=== PATIENT | female | born 1960 | race Asian ===

== ENCOUNTER 2016-06-10 18:40 | Inpatient (IN) | payer OTHER ==
[~2016-06-10] VITALS: Ht 152.4 cm; Wt 66.7 kg
[2016-06-10 18:54] VITALS: Ht 152.4 cm; Wt 66.7 kg
[2016-06-10] MEDS ORDERED: ACETAMINOPHEN 325 MG TAB PO STA (22:33)
[2016-06-10] MEDS ORDERED: SODIUM CHLORIDE 0.9% 1L BAG IV* STA (22:33)
--- NOTE | 2016-06-10 22:33 | ERA ---
ER Documentation Chief Complaint Date/Time DATE: 06/10/16 TIME: 22:32 Chief Complaint Abdominal pain HPI The patient is a 55-year-old female, presenting to the ER because of acute on chronic diffuse abdominal pain, more painful at the right upper quadrant, 8/10, no aggravating or relieving factor. She also complains of intermittent cough for the last 2 weeks. She denies fever, chills, neck pain, chest pain, dyspnea , vomiting, dysuria, diarrhea. She does not smoke does not drink Past medical history: Hepatitis B, asthma, hypertension, diabetes mellitus Past surgical history: Multiple ERCP, biliary tract surgery, cholecystectomy ROS All systems reviewed and are negative except as per history of present illness. Medications Home Meds Reported Medications Calcium Carbonate-Vitamin D3 (Calcium 600 + Vit D3) 1 Each Tablet, 1 TAB PO DAILY, TAB 06/10/16 Ursodiol* (Ursodiol*) 300 Mg Capsule, 300 MG PO DAILY, CAP 06/10/16 Valsartan-Hydrochlorothiazide (Valsartan-HCTZ) 80-12.5 Mg Tablet, 1 TAB PO DAILY , #30 TAB 06/10/16 Allergies Allergies: Coded Allergies: acetaminophen (Unverified Allergy, Unknown, 06/10/16) doxycycline (Unverified Allergy, Unknown, 06/10/16) hydrocodone (Unverified Allergy, Unknown, 06/10/16) hydromorphone (Unverified Allergy, Unknown, 06/10/16) morphine (Unverified Allergy, Unknown, 06/10/16) oxycodone (Unverified Allergy, Unknown, 06/10/16) prochlorperazine (Unverified Allergy, Unknown, 06/10/16) Physical Exam Vitals Vital Signs Date Time Temp Pulse Resp B/P Pulse Ox O2 Delivery O2 Flow Rate FiO2 06/11/16 00:20 100.5 111 21 136/81 98 Room Air 06/10/16 18:54 102.7 130 18 139/110 98 Physical Exam Const: No acute distress. Head: Atraumatic. Eyes: Normal Conjunctiva. ENT: Normal External Ears, Nose and Mouth. Neck: Full range of motion. No meningismus. Resp: Clear to auscultation bilaterally. Cardio: Regular but tachycardic Abd: Soft, non distended, normal bowel sounds, moderate right upper quadrant tenderness, no right lower quadrant, epigastric, CVA tenderness Skin: No petechiae or rashes. Back: No midline or flank tenderness. Ext: No cyanosis, or edema. Neur: Awake and alert. No focal deficit Psych: Normal Mood and Affect. Result Diagram: 06/10/168 06/10/168 Results 24 hrs Laboratory Tests Test 06/10/16 22:58 06/10/16 23:03 Activated Partial Thromboplast Time 31.7Sec Alanine Aminotransferase (ALT/SGPT) 85IU/L Albumin 4.6g/dl Albumin/Globulin Ratio 1.17 Alkaline Phosphatase 91IU/L Anion Gap 18 Aspartate Amino Transf (AST/SGOT) 87IU/L Basophils # 0.010^3/ul Basophils % 0.1% Blood Urea Nitrogen 18mg/dl Calcium Level 10.0mg/dl Carbon Dioxide Level 26mmol/L Chloride Level 99mmol/L Creatinine 0.89mg/dl Direct Bilirubin 0.00mg/dl Eosinophils # 0.010^3/ul Eosinophils % 0.1% Globulin 3.90g/dl Glucose Level 155mg/dl Hematocrit 42.3% Hemoglobin 14.3g/dl INR International Normalized Ratio 0.93 Indirect Bilirubin 1.2mg/dl Lactic Acid Level 1.7mmol/L Lymphocytes # 0.610^3/ul Lymphocytes % 4.4% Mean Corpuscular Hemoglobin 30.0pg Mean Corpuscular Hemoglobin Concent 33.7g/dl Mean Corpuscular Volume 89.2fl Mean Platelet Volume 8.7fl Monocytes # 0.610^3/ul Monocytes % 4.5% Neutrophils # 12.710^3/ul Neutrophils % 90.9% Nucleated Red Blood Cells # 0.010^3/ul Nucleated Red Blood Cells % 0.0/100WBC Platelet Count 20732^3/UL Potassium Level 4.0mmol/L Prothrombin Time 12.5Sec Prothrombin Time Ratio 1.0 Red Blood Count 4.7510^6/ul Red Cell Distribution Width 12.0% Sodium Level 139mmol/L Total Bilirubin 1.2mg/dl Total Protein 8.5g/dl Troponin I < 0.012ng/ml White Blood Count 13.910^3/ul Bedside Urine Blood Trace-lysed Bedside Urine Glucose (UA) Negative Bedside Urine Ketones (LAB) Negative Bedside Urine Leukocyte Esterase (L Negative Bedside Urine Nitrite (LAB) Negative Bedside Urine Protein (LAB) 3+ Bedside Urine pH (LAB) 5.5 Current Medications Medications (Trade) Dose Ordered Sig/Fay Route PRN Reason Start Time Stop Time Status Last Admin Dose Admin Sodium Chloride (NS) 2,030 ml BOLUS OVER 2 HOURS STAT IV* 06/10/16 22:33 06/10/16 22:35 DC 06/10/16 22:54 Acetaminophen (Tylenol Tab) 650 mg ONCE STAT PO 06/10/16 22:33 06/10/16 22:35 DC 06/10/16 22:54 Fentanyl (Sublimaze) 50 mcg ONCE ONCE IV 06/10/16 23:30 06/10/16 23:31 DC 06/10/16 23:19 Ondansetron HCl (Zofran Inj) 4 mg STK-MED ONCE .ROUTE 06/10/16 23:18 06/10/16 23:19 DC Fentanyl (Sublimaze) 50 mcg ONCE ONCE IV 06/11/16 00:30 06/11/16 00:31 DC 06/11/16 00:36 Procedures/MDM EKG: Read by emergency physician Rate/Rhythm: Sinus tachycardia 111 beats per min QRS, ST, T-waves: No ST elevation, no T wave inversion Impression: Abnormal EKG [place] [id number] Radiology Main Line: [phone] DIAGNOSTIC IMAGING REPORT Patient: CHRISTIAN MG : 1960 Age: 55 Sex: F [id number]: [facility]16 [facility] Ordering MD: CHRISTIANO SOLANO MD Location: E/R Room/Bed: PROCEDURE: XR Chest. CLINICAL INDICATION: Cough and fever. Sepsis. TECHNIQUE: Single frontal view. COMPARISON: None. FINDINGS: The lungs are clear. The heart size is normal. There is no pleural effusion. There is no pneumothorax. IMPRESSION: 1. Normal chest radiograph. RPTAT: QQ .Phu Carreno MD, MD Date Time Electronically viewed and signed by .Phu Carreno MD, MD on 06/10/2016 23:23 .R/ CC: CHRISTIANO SOLANO MD MEDICAL MAKING DECISION: [place] [id number] Radiology Main Line: [phone] DIAGNOSTIC IMAGING REPORT Patient: CHRISTIAN MG : 1960 Age: 55 Sex: F [id number] [id number] DOS: 06/10/16 2332 Ordering MD: CHRISTIANO SOLANO MD Location: E/R Room/Bed: PROCEDURE: CT Abdomen and Pelvis without contrast. CLINICAL INDICATION: Abdominal pain TECHNIQUE: CT scan of the abdomen and pelvis without contrast was performed on a multidetector high-resolution CT scanner. The patient was scanned without intravenous contrast. No oral contrast was administered. Coronal and sagittal reformatted images were obtained from the axial source images. Images were reviewed on a high-resolution PACS workstation. The total exam CTDI equals 9.98 mGy and the total exam DLP equals 563.25 mGy-cm. One or more of the following dose reduction techniques were used: - Automated exposure control. - Adjustment of the mA and/or kV according to patient size. - Use of iterative reconstruction technique. COMPARISON: None. FINDINGS: Lungs: Mild dependent atelectasis is seen in the posterior lower lungs. Linear atelectasis/fibrosis is seen at the lung bases. Calcified lymph node in the left lower hilum and calcified granuloma in the left lower lung lobe consistent with old granulomatous disease. Liver: Small amount of pneumobilia which could be secondary to previous intervention as such as sphincterotomy. Calcified granulomas in the liver. Nonspecific mild intrahepatic biliary dilatation in right lobe of liver posterior segment. Gallbladder: No gallbladder is seen suggestive of cholecystectomy. Spleen: No abnormality seen. Stomach: Food material/debris, fluid and air in the stomach. Pancreas: Small amount of pneumobilia in extrahepatic bile duct which could be secondary to previous intervention such as sphincterotomy. Adrenals: No abnormality seen. Kidneys: No abnormality seen. Abdominal aorta: No aneurysm seen. Atherosclerotic calcification is seen. Calcification in iliac arteries. Lymph nodes: No enlarged lymph nodes are seen. Small bowel: No dilated small bowel loops are seen. Colon: No abnormality seen. Appendix: No abnormality seen. Bladder: No abnormality seen Pelvic organs: No abnormality seen Ascites: None seen. Osseous structures: Mild degenerative changes at sacroiliac joints. Bilateral L5 spondylolysis with grade 1 L5 on S1 spondylolisthesis. Very small umbilical hernia containing fat only. IMPRESSION: No gallbladder seen suggestive of cholecystectomy. Small amount of pneumobilia which could be secondary to previous intervention as such as sphincterotomy. If there is no history of previous intervention, ascending cholangitis is a consideration. Nonspecific mild intrahepatic biliary dilatation in right lobe of liver posterior segment.. CT abdomen with contrast may be useful to evaluate for centrally obstructing lesion. Please see above. RPTAT: HJES .Sage Giraldo MD, MD Date Time Electronically viewed and signed by .Sage Giraldo MD, MD on 06/11/2016 01:09 .S/ CC: CHRISTIANO SOLANO MD MEDICAL MAKING DECISION: The patient is a 55-year-old female, presenting with acute on chronic abdominal pain of unclear etiology. She is allergic to Dilaudid and morphine. He was therefore treated with fentanyl 50 g IV 2 for pain Tylenol 750 mg p.o. for fever, normal saline 30 mL/kg IV for dehydration with good response. The differential diagnoses considered include but are not limited to cholelithiasis, cholecystitis, cystitis, pancreatitis, hepatitis, gastritis, peptic ulcer disease, gastric ulcer, appendicitis, diverticulitis, cholangitis, choledocholithiasis, partial small bowel obstruction. Departure Diagnosis: Primary Impression: Abdominal pain Additional Impression: Abnormal LFTs Condition: Stable Comments I discussed the findings with the patient. I discussed the on-call physician Dr. Ferreira. who was made aware of the lab, the treatment, the patient condition. The patient is admitted to medical surgery bed at 1:35 AM CHRISTIANO SOLANO MD Jun 10, 2016 22:33
[2016-06-10] MEDS ORDERED: VALS1TAB74 PO (22:58)
[2016-06-10] MEDS ORDERED: URSO300C3 PO (22:58)
[2016-06-10] MEDS ORDERED: CALC-621 PO (23:00)
[2016-06-10 23:03] LABS: URINE BLOOD (Dip) POC Trace-lysed (NEGATIVE)
[2016-06-10] MEDS ORDERED: ONDANSETRON 4 MG INJ ONE (23:18)
--- NOTE | 2016-06-10 23:23 | RADRPT ---
PROCEDURE: XR Chest. CLINICAL INDICATION: Cough and fever. Sepsis. TECHNIQUE: Single frontal view. COMPARISON: None. FINDINGS: The lungs are clear. The heart size is normal. There is no pleural effusion. There is no pneumothorax. IMPRESSION: 1. Normal chest radiograph. RPTAT: QQ .Phu Carreno MD, MD Date Time Electronically viewed and signed by .Phu Carreno MD, on 06/10/2016 23:23 .R/
[2016-06-10 23:29] LABS: BASOPHILS % 0.1 % (0.0-2.0); EOSINOPHILS % 0.1 % (0.0-7.0); HEMATOCRIT 42.3 % (37.0-47.0); HEMOGLOBIN 14.3 g/dl (12.0-16.0); LYMPHOCYTES # 0.6 10^3/ul (0.8-2.9); LYMPHOCYTES % 4.4 % (15.0-51.0); MEAN CORPUSCULAR HGB CONC 33.7 g/dl (32.0-37.0); MEAN CORPUSCULAR VOLUME 89.2 fl (82.0-101.0); MEAN PLATELET VOLUME 8.7 fl (7.4-10.4); MONOCYTE # 0.6 10^3/ul (0.3-0.9); MONOCYTES % 4.5 % (0.0-11.0); NEUTROPHIL # 12.7 10^3/ul (1.6-7.5); NEUTROPHILS % 90.9 % (39.0-77.0); PLATELET COUNT 171 10^3/UL (140-440); RED BLOOD COUNT 4.75 10^6/ul (4.20-5.40); UNCORRECTED WBC 13.9 10^3/ul (4.8-10.8); WHITE BLOOD COUNT 13.9 10^3/ul (4.8-10.8)
[2016-06-10] MEDS ORDERED: FENTAnyl 50 MCG/ML VIAL IV ONE (23:30)
[2016-06-10 23:31] LABS: ALBUMIN 4.6 g/dl (3.3-4.9); CHLORIDE 99 mmol/L (97-110); INR 0.93; PROTIME 12.5 Sec (12.2-14.2)
[2016-06-10 23:32] LABS: PARTIAL THROMBOPLASTIN TIME 31.7 Sec (25.0-35.0); SODIUM 139 mmol/L (135-144)
[2016-06-10 23:34] LABS: ALBUMIN/GLOBULIN RATIO 1.17; ANION GAP 18 (8-16); ASPARTATE AMINO TRANSFERASE 87 IU/L (15-46); BILIRUBIN,INDIRECT 1.2 mg/dl (0-1.1); BILIRUBIN,TOTAL 1.2 mg/dl (0.2-1.3); CARBON DIOXIDE 26 mmol/L (21-31); CREATININE 0.89 mg/dl (0.44-1.00); TOTAL PROTEIN 8.5 g/dl (6.1-8.1)
[2016-06-10 23:35] LABS: ALANINE AMINOTRANSFERASE 85 IU/L (13-69); ALKALINE PHOSPHATASE 91 IU/L (42-121); BLOOD UREA NITROGEN 18 mg/dl (7-20); CONDITION 1; GLUCOSE 155 mg/dl (70-220); LH ANALYZER COMMENTS 1
[2016-06-10 23:53] LABS: TROPONIN-I < 0.012 ng/ml (0.00-0.12)
[2016-06-11] MEDS ORDERED: FENTAnyl 50 MCG/ML VIAL IV ONE (00:30)
--- NOTE | 2016-06-11 01:10 | RADRPT ---
PROCEDURE: CT Abdomen and Pelvis without contrast. CLINICAL INDICATION: Abdominal pain TECHNIQUE: CT scan of the abdomen and pelvis without contrast was performed on a multidetector hig h-resolution CT scanner. The patient was scanned without intravenous contrast. No oral contrast was administered. Coronal and sagittal reformatted images were obtained from the axial source images. Im ages were reviewed on a high-resolution PACS workstation. The total exam CTDI equals 9.98 mGy and t he total exam DLP equals 563.25 mGy-cm. One or more of the following dose reduction techniques were used: - Automated exposure control. - Adjustment of the mA and/or kV according to patient size. - Use of iterative reconstruction technique. COMPARISON: None. FINDINGS: Lungs: Mild dependent atelectasis is seen in the posterior lower lungs. Linear atelectasis/fibrosis is seen at the lung bases. Calcified lymph node in the left lower hilum and calcified granuloma in the left lower lung lobe consistent with old granulomatous disease. Liver: Small amount of pneumobilia which could be secondary to previous intervention as such as sphi ncterotomy. Calcified granulomas in the liver. Nonspecific mild intrahepatic biliary dilatation in right lobe of liver posterior segment. Gallbladder: No gallbladder is seen suggestive of cholecystectomy. Spleen: No abnormality seen. Stomach: Food material/debris, fluid and air in the stomach. Pancreas: Small amount of pneumobilia in extrahepatic bile duct which could be secondary to previou s intervention such as sphincterotomy. Adrenals: No abnormality seen. Kidneys: No abnormality seen. Abdominal aorta: No aneurysm seen. Atherosclerotic calcification is seen. Calcification in iliac a rteries. Lymph nodes: No enlarged lymph nodes are seen. Small bowel: No dilated small bowel loops are seen. Colon: No abnormality seen. Appendix: No abnormality seen. Bladder: No abnormality seen Pelvic organs: No abnormality seen Ascites: None seen. Osseous structures: Mild degenerative changes at sacroiliac joints. Bilateral L5 spondylolysis with grade 1 L5 on S1 spondylolisthesis. Very small umbilical hernia containing fat only. IMPRESSION: No gallbladder seen suggestive of cholecystectomy. Small amount of pneumobilia which could be secon sarah to previous intervention as such as sphincterotomy. If there is no history of previous interven tion, ascending cholangitis is a consideration. Nonspecific mild intrahepatic biliary dilatation in right lobe of liver posterior segment.. CT abdomen with contrast may be useful to evaluate for cent rally obstructing lesion. Please see above. RPTAT: HJES .Sage Giraldo MD, Date Time Electronically viewed and signed by .Sage Giraldo MD, on 06/11/2016 01:09 .S/
[2016-06-11 01:51] VITALS: TEMP 100.8
[2016-06-11 02:34] VITALS: BP 139/86; RESP 19
[2016-06-11] MEDS ORDERED: VALS80TA2 PO (02:53)
[2016-06-11] MEDS ORDERED: URSO300C21 PO (02:55)
[2016-06-11] MEDS ORDERED: ONDANSETRON 4 MG INJ IV PRN (03:30)
[2016-06-11] MEDS: PIPER-TAZO 3.375 GM IV (PMX) 100 ML IVPB SCH ×3 (05:26→17:40)
[2016-06-11 07:30] VITALS: BP 125/78; RESP 18
--- NOTE | 2016-06-11 08:05 | HP ---
DATE OF ADMISSION: 06/11/2016 TIME SEEN: 5 a.m. CHIEF COMPLAINT: Abdominal pain. HISTORY OF PRESENT ILLNESS: The patient is a 55-year-old female with a history of hypertension, edy betes, asthma, hepatitis B, cholecystectomy, chronic abdominal pain, and multiple ERCPs, who present ed to the emergency department with abdominal pain. She states she has had chronic abdominal pain, but this one recently started and it worsened since yesterday. The pain is mainly localized in the right upper quadrant area. She also reported a dry cough, fever and nausea. She denied constipation , diarrhea, chest pain, shortness of breath, or urinary symptoms. When she presented to the ER she was febrile with a temperature of 102.7, a heart rate of 130. Laboratory value show a WBC of 14,000 , AST and ALT in the 80s. CT abdomen and pelvis without contrast shows status post cholecystectomy, and also a small amount of pneumobilia, which could be secondary to a previous intervention such as a sphincterotomy, but if there is no history of previous intervention, radiology states that ascend ing cholangitis should considered. Also nonspecific mild intrahepatic biliary dilatation in the rig ht lobe of the liver, posterior segment, was done. She was given Zofran, weight based IV fluid, and Tylenol while she was in the ER. She had also received fentanyl for pain because she has MULTIPLE ALLERGIES, INCLUDING HYDROCORTISONE, MORPHINE, DILAUDID AND OXYCODONE. REVIEW OF SYSTEMS: Negative except as mentioned in the HPI. PAST MEDICAL HISTORY: As per HPI. PAST SURGICAL HISTORY: Cholecystectomy, exploratory laparotomy, repair of meniscus tear, surgery fo r carpal tunnel, multiple ERCPs. SOCIAL HISTORY: Denied a history of tobacco, alcohol or illicit drug use. ALLERGIES: 1. ACETAMINOPHEN. 2. DOXYCYCLINE. 3. HYDROCODONE. 4. HYDROMORPHONE. 5. OXYCODONE. 7. MORPHINE. 8. PROCHLORPERAZINE. MEDICATION: 1. Valsartan. 2. Hydrochlorothiazide. 3. Calcium. 4. Vitamin D. 5. Ursodiol. PHYSICAL EXAMINATION: VITAL SIGNS: Blood pressure 139/86, heart rate 113, respiratory rate 19, temperature 101, oxygen sa turation 96% on room air. GENERAL: The patient looks slightly uncomfortable, but alert and oriented, answering questions appr opriately. HEENT: No obvious head deformity. Pupils are reactive to light. Extraocular muscles are intact. CARDIOVASCULAR: Tachycardia, regular rhythm. LUNGS: Clear. ABDOMEN: Soft. There is tenderness mainly in the right upper quadrant, with no guarding, rebound te nderness or rigidity. EXTREMITIES: No edema. NEUROLOGIC: No focal deficits. LABORATORY: Results as mentioned in the HPI. IMAGING: CT abdomen and pelvis without contrast, results as mentioned in the HPI. Chest x-ray is n ormal. IMPRESSION: 1. Sepsis, likely source from the biliary system, given her right upper quadrant pain. 2. Ptpcy-ym-oblcowu abdominal pain. 3. History of hypertension. 4. History of asthma. 5. History of recently diagnosed diabetes. 6. History of hepatitis B. 7. History of cholecystectomy, exploratory laparotomy and multiple ERCPs. 8. Elevated transaminase. PLAN: She will be placed on broad spectrum antibiotics, given her presentation of sepsis. No clear source is identified yet, but given the right upper quadrant pain, the source could be the biliary s ystem. Will place an ID consult, as well as GI. Will follow up on the blood culture results. Will resend urinalysis and also will follow up on the urine culture. She will be continued with her darci e medications, with adjustments as needed. Will check an A1c, given the reported history of recentl y diagnosed diabetes. Will consider obtaining a CT abdomen and pelvis with contrast, but for now wi ll leave the decision up to GI. Further workup and management per clinical course. Dictated By: DWAIN GRADY/GHANSHYAM Conf#: [id number] DID#: [id number]
[2016-06-11] MEDS: VALSARTAN 80 MG TAB PO SCH (09:55)
[2016-06-11] MEDS: FAMOTIDINE 20 MG INJ IV SCH ×2 (09:56→20:50)
[2016-06-11] MEDS: HYDROCHLOROTHIAZIDE 12.5 MG CAP PO SCH (09:56)
[2016-06-11] MEDS: HEPARIN 5,000 UNIT/0.5 ML SYG SC SCH ×2 (09:58→20:51)
[2016-06-11] MEDS: URSODIOL 300 MG CAP PO SCH (10:53)
[2016-06-11] MEDS: KETOROLAC 30 MG INJ IV PRN (13:05)
--- NOTE | 2016-06-11 16:37 | PN ---
Date/Time of Note Date/Time of Note DATE: 06/11/16 TIME: 16:28 Assessment/Plan VTE Prophylaxis VTE Prophylaxis Intervention: heparin Lines/Catheters IV [facility]from [facility] [place] [facility] Urinary Cath still in place: No Assessment/Plan Assessment/Plan 1. Likely acute chamlangitis due to previous surgery that changed the anatomy of biliary outlet, on Zosyn 2. Sepsis, IVF and antibiotics 3. History of hypertension. 4. History of asthma. 5. History of recently diagnosed diabetes. 6. History of hepatitis B. 7. History of cholecystectomy, exploratory laparotomy and multiple ERCPs, last one was in 2008 8. Elevated transaminase. Subjective 24 Hr Interval Summary Free Text/Dictation no fever or chills today, less abdominal pain Exam/Review of Systems Vital Signs Vitals Vital Signs Date Time Temp Pulse Resp B/P Pulse Ox O2 Delivery O2 Flow Rate FiO2 06/11/16 07:30 99.2 79 18 125/78 97 06/11/16 01:51 Room Air Intake and Output 06/10/16 06/10/16 06/11/16 15:00 23:00 07:00 Intake Total 100 ml Balance 100 ml Exam Constitutional: alert, oriented Psych: nl mood/affect, no complaints Head: atraumatic, normocephalic Eyes: EOMI, nl conjunctiva, nl lids ENMT: nl external ears & nose, nl lips & teeth, nl nasal mucosa & septum Neck: non-tender, supple Respiratory: clear to auscultation, normal air movement, No congested cough, No crackles/rales, No diminished breath sounds, No intercostal retraction, No labored breathing, No respirations, No tactile fremitus, No wheezing Cardiovascular: nl pulses, regular rate and rhythm, No S3, No S4, No bruits, No diastolic murmur, No edema, No gallop, No irregular rhythm, No jugular venous distention (JVD), No murmurs/extra sounds, No rub, No systolic murmur Gastrointestinal: nl liver, spleen, other (mild right upper abdominal tenderness), soft Musculoskeletal: nl extremities to inspection Extremities: normal pulses, No calf tenderness, No clubbing, No cyanosis, No edema, No palpable cord, No pitting pedal edema, No tenderness Neurological: [employer] II-XII intact, nl mental status, nl speech, nl strength Skin: nl turgor, rash or lesions Lymph: nl lymph nodes Results Result Diagram: 06/10/16 2258 06/10/16 2258 Results 24 hrs Laboratory Tests Test 06/10/16 22:58 06/10/16 23:03 06/11/16 03:13 06/11/16 05:10 Activated Partial Thromboplast Time 31.7 Alanine Aminotransferase (ALT/SGPT) 85 H Albumin 4.6 Albumin/Globulin Ratio 1.17 Alkaline Phosphatase 91 Anion Gap 18 H Aspartate Amino Transf (AST/SGOT) 87 H Basophils # 0.0 Basophils % 0.1 Blood Urea Nitrogen 18 Calcium Level 10.0 Carbon Dioxide Level 26 Chloride Level 99 Creatinine 0.89 Direct Bilirubin 0.00 Eosinophils # 0.0 Eosinophils % 0.1 Globulin 3.90 H Glucose Level 155 Hematocrit 42.3 Hemoglobin 14.3 INR International Normalized Ratio 0.93 Indirect Bilirubin 1.2 H Lactic Acid Level 1.7 1.4 1.8 Lymphocytes # 0.6 L Lymphocytes % 4.4 L Mean Corpuscular Hemoglobin 30.0 Mean Corpuscular Hemoglobin Concent 33.7 Mean Corpuscular Volume 89.2 Mean Platelet Volume 8.7 Monocytes # 0.6 Monocytes % 4.5 Neutrophils # 12.7 H Neutrophils % 90.9 H Nucleated Red Blood Cells # 0.0 Nucleated Red Blood Cells % 0.0 Platelet Count 171 Potassium Level 4.0 Prothrombin Time 12.5 Prothrombin Time Ratio 1.0 Red Blood Count 4.75 Red Cell Distribution Width 12.0 Sodium Level 139 Total Bilirubin 1.2 Total Protein 8.5 H Troponin I < 0.012 White Blood Count 13.9 H Bedside Urine Blood Trace-lysed H Bedside Urine Glucose (UA) Negative Bedside Urine Ketones (LAB) Negative Bedside Urine Leukocyte Esterase (L Negative Bedside Urine Nitrite (LAB) Negative Bedside Urine Protein (LAB) 3+ H Bedside Urine pH (LAB) 5.5 Lipase 198 Test 06/11/16 11:22 Bedside Glucose 112 Medications Medications Current Medications Ketorolac Tromethamine (Toradol) 30 mg Q6H PRN IV PAIN Last administered on 06/11 13:05; Admin Dose 30 MG; Start 06/11/16 at 03:30; Stop 06/14/16 at 03:29 Famotidine (Pepcid Iv) 20 mg BID IV Last administered on 06/11/16 09:56; Admin Dose 20 MG; Start 06/11/16 at 09:00 Heparin Sodium (Porcine) (Heparin (5000 Units/0.5 ml)) 5,000 unit BID SC Last administered on 06/11/16 09:58; Admin Dose 5,000 UNIT; Start 06/11/16 at 09:00 Ondansetron HCl 4 mg 4 mg Q6H PRN IV NAUSEA AND/OR VOMITING; Start 06/11/16 at 03:30 Piperacillin Sod/ Tazobactam Sod (Zosyn 3.375gm/ 100 ml (Pmx)) 100 ml @ 200 mls /hr Q6 IVPB Last administered on 06/11/16 13:06; Admin Dose 200 MLS/HR; Start 06/11/16 at 06:00 Ursodiol (Actigall) 300 mg DAILY PO Last administered on 06/11/16 10:53; Admin Dose 300 MG; Start 06/11/16 at 09:00 Valsartan (Diovan) 80 mg DAILY PO Last administered on 06/11/16 09:55; Admin Dose 80 MG; Start 06/11/16 at 09:00 Hydrochlorothiazide (Hydrochlorothiazide) 12.5 mg DAILY PO Last administered on 06/11/16 09:56; Admin Dose 12.5 MG; Start 06/11/16 at 09:00 DUNCAN GAMBINO MD Jun 11, 2016 16:37
[2016-06-11] MEDS ORDERED: GLUCAGON 1 MG INJ IM PRN (18:00)
[2016-06-11] MEDS ORDERED: DEXTROSE 50% 50 ML SYRINGE IV PRN ×2 (18:00)
[2016-06-11] MEDS ORDERED: GLUCOSE GEL 15 GRAM TUBE BUCCAL PRN (18:00)
[2016-06-11] MEDS ORDERED: GLUCOSE GEL 15 GRAM TUBE PO PRN ×2 (18:00)
[2016-06-11] MEDS: INSULIN ASPART [NOVOLOG] 3 ML PEN SC SCH ×2 (18:04→20:51)
[2016-06-11 19:45] VITALS: BP 147/83; RESP 18
[2016-06-12] MEDS: PIPER-TAZO 3.375 GM IV (PMX) 100 ML IVPB SCH ×4 (00:07→17:25)
[2016-06-12] MEDS: ACCUCHECK XX SCH (01:29)
[2016-06-12] MEDS: SUCRALFATE 1 GM TAB PO SCH ×4 (01:29→17:26)
[2016-06-12] MEDS ORDERED: CALCIUM CARBONATE 500 MG CHEW TAB PO PRN (01:30)
[2016-06-12 05:22] LABS: BASOPHILS % 0.1 % (0.0-2.0); EOSINOPHILS # 0.2 10^3/ul (0.0-0.5); EOSINOPHILS % 3.3 % (0.0-7.0); HEMATOCRIT 34.9 % (37.0-47.0); HEMOGLOBIN 11.9 g/dl (12.0-16.0); LYMPHOCYTES # 1.3 10^3/ul (0.8-2.9); LYMPHOCYTES % 25.9 % (15.0-51.0); MEAN CORPUSCULAR HEMOGLOBIN 30.2 pg (29.0-33.0); MEAN CORPUSCULAR VOLUME 88.8 fl (82.0-101.0); MEAN PLATELET VOLUME 8.4 fl (7.4-10.4); MONOCYTE # 0.5 10^3/ul (0.3-0.9); MONOCYTES % 10.2 % (0.0-11.0); NEUTROPHIL # 3.1 10^3/ul (1.6-7.5); NEUTROPHILS % 60.5 % (39.0-77.0); PLATELET COUNT 141 10^3/UL (140-440); RED BLOOD COUNT 3.93 10^6/ul (4.20-5.40); UNCORRECTED WBC 5.1 10^3/ul (4.8-10.8); WHITE BLOOD COUNT 5.1 10^3/ul (4.8-10.8)
[2016-06-12 05:35] LABS: ALBUMIN 3.6 g/dl (3.3-4.9)
[2016-06-12 05:36] LABS: POTASSIUM 3.5 mmol/L (3.5-5.1)
[2016-06-12 05:38] LABS: ALBUMIN/GLOBULIN RATIO 1.05; BILIRUBIN,INDIRECT 1.6 mg/dl (0-1.1); BILIRUBIN,TOTAL 1.6 mg/dl (0.2-1.3); CALCIUM 8.8 mg/dl (8.4-10.2); CREATININE 1.07 mg/dl (0.44-1.00)
[2016-06-12 06:24] LABS: CONDITION 1
[2016-06-12] MEDS: INSULIN ASPART [NOVOLOG] 3 ML PEN SC SCH ×4 (07:56→21:00)
[2016-06-12 08:30] VITALS: BP 143/81; RESP 18
[2016-06-12] MEDS: URSODIOL 300 MG CAP PO SCH (08:30)
[2016-06-12] MEDS: VALSARTAN 80 MG TAB PO SCH (08:31)
[2016-06-12] MEDS: FAMOTIDINE 20 MG INJ IV SCH ×2 (08:31→21:34)
[2016-06-12] MEDS: HYDROCHLOROTHIAZIDE 12.5 MG CAP PO SCH (08:31)
[2016-06-12] MEDS: HEPARIN 5,000 UNIT/0.5 ML SYG SC SCH ×2 (08:35→21:00)
[2016-06-12] MEDS: KETOROLAC 30 MG INJ IV PRN (12:11)
--- NOTE | 2016-06-12 16:08 | PN ---
Date/Time of Note Date/Time of Note DATE: 06/12/16 TIME: 15:58 Assessment/Plan VTE Prophylaxis VTE Prophylaxis Intervention: heparin Lines/Catheters IV Catheter Type (from Nrs): Saline Lock Urinary Cath still in place: No Assessment/Plan Assessment/Plan 1. Likely acute cholangitis due to previous surgery that changed the anatomy of biliary outlet, on Zosyn. Patient is much less, patient can be discharged on levaquin/flagyl when pain is better 2. Sepsis, improved 3. History of hypertension. 4. History of asthma. 5. History of recently diagnosed diabetes. 6. History of hepatitis B. 7. History of cholecystectomy, exploratory laparotomy and multiple ERCPs, last one was in 2008 8. Elevated transaminase.improved Subjective 24 Hr Interval Summary Free Text/Dictation less abdominal pain. No nausea or diarrhea Exam/Review of Systems Vital Signs Vitals Vital Signs Date Time Temp Pulse Resp B/P Pulse Ox O2 Delivery O2 Flow Rate FiO2 06/12/16 08:30 98.8 80 18 143/81 96 06/11/16 01:51 Room Air Intake and Output 06/11/16 06/11/16 06/12/16 15:00 23:00 07:00 Intake Total 200 ml 320 ml Balance 200 ml 320 ml Exam Constitutional: alert, oriented, well developed Psych: nl mood/affect, no complaints Head: atraumatic, normocephalic Eyes: EOMI, PERRL, nl conjunctiva ENMT: nl external ears & nose, nl lips & teeth, nl nasal mucosa & septum Neck: non-tender, supple Respiratory: clear to auscultation, normal air movement, No congested cough, No crackles/rales, No diminished breath sounds, No intercostal retraction, No labored breathing, No respirations, No tactile fremitus, No wheezing Cardiovascular: nl pulses, regular rate and rhythm, No S3, No S4, No bruits, No diastolic murmur, No edema, No gallop, No irregular rhythm, No jugular venous distention (JVD), No murmurs/extra sounds, No rub, No systolic murmur Gastrointestinal: nl liver, spleen, soft, tender (right upper ), No ascites, No bowel sounds, No distended, No firm, No hepatomegaly, No mass , No rebound or guarding, No splenomegaly, No surgical scars Musculoskeletal: nl extremities to inspection Extremities: normal pulses, No calf tenderness, No clubbing, No cyanosis, No edema, No palpable cord, No pitting pedal edema, No tenderness Neurological: MANAGER PEOPLE II-XII intact, nl mental status, nl speech, nl strength Skin: nl turgor, rash or lesions Lymph: nl lymph nodes Results Result Diagram: 06/12/16 0425 06/12/16 0440 Results 24 hrs Laboratory Tests Test 06/11/16 17:39 06/11/16 20:04 06/12/16 04:25 06/12/16 04:40 Bedside Glucose 100 134 Basophils # 0.0 Basophils % 0.1 Eosinophils # 0.2 Eosinophils % 3.3 Hematocrit 34.9 L Hemoglobin 11.9 L Lymphocytes # 1.3 Lymphocytes % 25.9 Mean Corpuscular Hemoglobin 30.2 Mean Corpuscular Hemoglobin Concent 34.0 Mean Corpuscular Volume 88.8 Mean Platelet Volume 8.4 Monocytes # 0.5 Monocytes % 10.2 Neutrophils # 3.1 Neutrophils % 60.5 Nucleated Red Blood Cells # 0.0 Nucleated Red Blood Cells % 0.0 Platelet Count 141 Red Blood Count 3.93 L Red Cell Distribution Width 12.0 White Blood Count 5.1 # Alanine Aminotransferase (ALT/SGPT) 68 Albumin 3.6 # Albumin/Globulin Ratio 1.05 Alkaline Phosphatase 65 Anion Gap 18 H Aspartate Amino Transf (AST/SGOT) 53 H Blood Urea Nitrogen 17 Calcium Level 8.8 Carbon Dioxide Level 25 Chloride Level 103 Creatinine 1.07 H Direct Bilirubin 0.00 Globulin 3.40 H Glucose Level 102 # Indirect Bilirubin 1.6 H Potassium Level 3.5 Sodium Level 142 Total Bilirubin 1.6 H Total Protein 7.0 # Test 06/12/16 07:42 06/12/16 11:15 Bedside Glucose 90 98 Medications Medications Current Medications Ketorolac Tromethamine (Toradol) 30 mg Q6H PRN IV PAIN Last administered on 06/12 12:11; Admin Dose 30 MG; Start 06/11/16 at 03:30; Stop 06/14/16 at 03:29 Famotidine (Pepcid Iv) 20 mg BID IV Last administered on 06/12/16 08:31; Admin Dose 20 MG; Start 06/11/16 at 09:00 Heparin Sodium (Porcine) (Heparin (5000 Units/0.5 ml)) 5,000 unit BID SC Last administered on 06/12/16 08:35; Admin Dose 5,000 UNIT; Start 06/11/16 at 09:00 Ondansetron HCl 4 mg 4 mg Q6H PRN IV NAUSEA AND/OR VOMITING; Start 06/11/16 at 03:30 Piperacillin Sod/ Tazobactam Sod (Zosyn 3.375gm/ 100 ml (Pmx)) 100 ml @ 200 mls /hr Q6 IVPB Last administered on 06/12/16 12:12; Admin Dose 200 MLS/HR; Start 06/11/16 at 06:00 Ursodiol (Actigall) 300 mg DAILY PO Last administered on 06/12/16 08:30; Admin Dose 300 MG; Start 06/11/16 at 09:00 Valsartan (Diovan) 80 mg DAILY PO Last administered on 06/12/16 08:31; Admin Dose 80 MG; Start 06/11/16 at 09:00 Hydrochlorothiazide (Hydrochlorothiazide) 12.5 mg DAILY PO Last administered on 06/12/16 08:31; Admin Dose 12.5 MG; Start 06/11/16 at 09:00 Diagnostic Test (Pha) (Accucheck) 1 ea 02 XX ; Start 06/12/16 at 02:00 Miscellaneous Information 1 ea NOTE XX ; Start 06/11/16 at 18:00 Glucose (Glutose) 15 gm Q15M PRN PO DECREASED GLUCOSE; Start 06/11/16 at 18:00 Glucose (Glutose) 22.5 gm Q15M PRN PO DECREASED GLUCOSE; Start 06/11/16 at 18:00 Dextrose (D50w Syringe) 25 ml Q15M PRN IV DECREASED GLUCOSE; Start 06/11/16 at 18:00 Dextrose (D50w Syringe) 50 ml Q15M PRN IV DECREASED GLUCOSE; Start 06/11/16 at 18:00 Glucagon (Glucagen) 1 mg Q15M PRN IM DECREASED GLUCOSE; Start 06/11/16 at 18:00 Glucose (Glutose) 15 gm Q15M PRN BUCCAL DECREASED GLUCOSE; Start 06/11/16 at 18: 00 DUNCAN GAMBINO MD Jun 12, 2016 16:08
[2016-06-12 21:30] VITALS: BP 157/80; PULSE 61; RESP 16
[2016-06-13] MEDS: PIPER-TAZO 3.375 GM IV (PMX) 100 ML IVPB SCH ×4 (00:22→17:33)
[2016-06-13] MEDS: ACCUCHECK XX SCH (02:00)
[2016-06-13 07:06] LABS: ALBUMIN 3.6 g/dl (3.3-4.9); POTASSIUM 3.5 mmol/L (3.5-5.1)
[2016-06-13 07:08] LABS: BILIRUBIN,INDIRECT 0.9 mg/dl (0-1.1); BILIRUBIN,TOTAL 0.9 mg/dl (0.2-1.3); CREATININE 1.16 mg/dl (0.44-1.00)
[2016-06-13 07:09] LABS: TOTAL PROTEIN 7.2 g/dl (6.1-8.1)
[2016-06-13] MEDS: INSULIN ASPART [NOVOLOG] 3 ML PEN SC SCH ×4 (07:39→20:32)
[2016-06-13 08:15] VITALS: BP 141/92; RESP 19
[2016-06-13] MEDS: HEPARIN 5,000 UNIT/0.5 ML SYG SC SCH ×2 (08:46→20:29)
[2016-06-13] MEDS: URSODIOL 300 MG CAP PO SCH ×2 (08:47→20:29)
[2016-06-13] MEDS: FAMOTIDINE 20 MG INJ IV SCH (08:47)
[2016-06-13] MEDS: HYDROCHLOROTHIAZIDE 12.5 MG CAP PO SCH (08:47)
[2016-06-13] MEDS: VALSARTAN 80 MG TAB PO SCH (08:47)
[2016-06-13] MEDS: SUCRALFATE 1 GM TAB PO SCH ×3 (08:51→17:33)
[2016-06-13 11:44] LABS: BASOPHILS % 0.5 % (0.0-2.0); EOSINOPHILS # 0.2 10^3/ul (0.0-0.5); EOSINOPHILS % 4.1 % (0.0-7.0); HEMATOCRIT 36.6 % (37.0-47.0); HEMOGLOBIN 12.1 g/dl (12.0-16.0); LYMPHOCYTES # 1.5 10^3/ul (0.8-2.9); LYMPHOCYTES % 36.5 % (15.0-51.0); MEAN CORPUSCULAR HEMOGLOBIN 29.8 pg (29.0-33.0); MEAN CORPUSCULAR HGB CONC 33.1 g/dl (32.0-37.0); MEAN CORPUSCULAR VOLUME 90.1 fl (82.0-101.0); MEAN PLATELET VOLUME 10.7 fl (7.4-10.4); MONOCYTE # 0.5 10^3/ul (0.3-0.9); MONOCYTES % 11.3 % (0.0-11.0); NEUTROPHILS % 47.4 % (39.0-77.0); PLATELET COUNT 167 10^3/UL (140-440); RED BLOOD COUNT 4.06 10^6/ul (4.20-5.40); RED CELL DISTRIBUTION WIDTH 11.7 % (11.5-14.5); UNCORRECTED WBC 4.2 10^3/ul (4.8-10.8); WHITE BLOOD COUNT 4.2 10^3/ul (4.8-10.8)
--- NOTE | 2016-06-13 13:54 | PN ---
Date/Time of Note Date/Time of Note DATE: 06/13/16 TIME: 13:51 Assessment/Plan VTE Prophylaxis VTE Prophylaxis Intervention: other Lines/Catheters [facility] Saline Lock Urinary Cath still in place: No Assessment/Plan Problems: (1) UTI (urinary tract infection) Status: Acute Comment: She is on antibiotics which are of a spectrum that should cover this nicely. Please note she had proteinuria which may need to be checked Qualifiers: Urinary tract infection type: acute cystitis Hematuria presence: without hematuria Qualified Code: N30.00 - Acute cystitis without hematuria (2) Migraine syndrome Status: Chronic Comment: She is having 4 headaches a month. This is appropriate for prophylactic therapy. (3) Ascending cholangitis Status: Chronic Comment: She is doing better with medication treatment antibiotics Assessment/Plan Metabolic syndrome; stable Subjective 24 Hr Interval Summary Free Text/Dictation Patient reports symptomatically she is doing much better. Historically she states that she has had ERCP 14 times after cholecystectomy. She had previously been managed by her colleagues at [facility] and had been with a special case. Constitutional: no complaints Respiratory: no complaints Cardiovascular: no complaints Gastrointestinal: no complaints Exam/Review of Systems Vital Signs Vitals Vital Signs Date Time Temp Pulse Resp B/P Pulse Ox O2 Delivery O2 Flow Rate FiO2 06/13/16 08:15 98.3 69 19 141/92 97 06/12/16 21:30 Room Air Intake and Output 06/12/16 06/12/16 06/13/16 15:00 23:00 07:00 Intake Total 800 ml 600 ml Balance 800 ml 600 ml Exam Constitutional: alert, oriented Neck: non-tender, supple Respiratory: clear to auscultation, normal air movement Cardiovascular: nl pulses, regular rate and rhythm Gastrointestinal: nl liver, spleen, non-tender, soft Results Result Diagram: 06/13/16 0520 06/13/16 0520 Results 24 hrs Laboratory Tests Test 06/12/16 16:29 06/12/16 20:35 06/13/16 05:20 06/13/16 07:38 Bedside Glucose 80 176 113 Alanine Aminotransferase (ALT/SGPT) 61 Albumin 3.6 Albumin/Globulin Ratio 1.00 Alkaline Phosphatase 69 Anion Gap 16 Aspartate Amino Transf (AST/SGOT) 45 Basophils # 0.0 Basophils % 0.5 Blood Urea Nitrogen 17 Calcium Level 9.0 Carbon Dioxide Level 27 Chloride Level 104 Creatinine 1.16 H Direct Bilirubin 0.00 Eosinophils # 0.2 Eosinophils % 4.1 Globulin 3.60 H Glucose Level 104 Hematocrit 36.6 L Hemoglobin 12.1 Indirect Bilirubin 0.9 Lymphocytes # 1.5 Lymphocytes % 36.5 Mean Corpuscular Hemoglobin 29.8 Mean Corpuscular Hemoglobin Concent 33.1 Mean Corpuscular Volume 90.1 Mean Platelet Volume 10.7 #H Monocytes # 0.5 Monocytes % 11.3 H Neutrophils # 2.0 Neutrophils % 47.4 Nucleated Red Blood Cells # 0.0 Nucleated Red Blood Cells % 0.0 Platelet Count 167 Potassium Level 3.5 Red Blood Count 4.06 L Red Cell Distribution Width 11.7 Sodium Level 143 Total Bilirubin 0.9 Total Protein 7.2 White Blood Count 4.2 L Test 06/13/16 12:00 Bedside Glucose 128 Medications Medications Current Medications Ketorolac Tromethamine (Toradol) 30 mg Q6H PRN IV PAIN Last administered on 06/12 12:11; Admin Dose 30 MG; Start 06/11/16 at 03:30; Stop 06/14/16 at 03:29 Famotidine (Pepcid Iv) 20 mg BID IV Last administered on 06/13/16 08:47; Admin Dose 20 MG; Start 06/11/16 at 09:00 Heparin Sodium (Porcine) (Heparin (5000 Units/0.5 ml)) 5,000 unit BID SC Last administered on 06/12/16 08:35; Admin Dose 5,000 UNIT; Start 06/11/16 at 09:00 Ondansetron HCl 4 mg 4 mg Q6H PRN IV NAUSEA AND/OR VOMITING; Start 06/11/16 at 03:30 Piperacillin Sod/ Tazobactam Sod (Zosyn 3.375gm/ 100 ml (Pmx)) 100 ml @ 200 mls /hr Q6 IVPB Last administered on 06/13/16 12:31; Admin Dose 200 MLS/HR; Start 06/11/16 at 06:00 Ursodiol (Actigall) 300 mg DAILY PO Last administered on 06/13/16 08:47; Admin Dose 300 MG; Start 06/11/16 at 09:00 Valsartan (Diovan) 80 mg DAILY PO Last administered on 06/13/16 08:47; Admin Dose 80 MG; Start 06/11/16 at 09:00 Hydrochlorothiazide (Hydrochlorothiazide) 12.5 mg DAILY PO Last administered on 06/13/16 08:47; Admin Dose 12.5 MG; Start 06/11/16 at 09:00 Diagnostic Test (Pha) (Accucheck) 1 ea 02 XX ; Start 06/12/16 at 02:00 Miscellaneous Information 1 ea NOTE XX ; Start 06/11/16 at 18:00 Glucose (Glutose) 15 gm Q15M PRN PO DECREASED GLUCOSE; Start 06/11/16 at 18:00 Glucose (Glutose) 22.5 gm Q15M PRN PO DECREASED GLUCOSE; Start 06/11/16 at 18:00 Dextrose (D50w Syringe) 25 ml Q15M PRN IV DECREASED GLUCOSE; Start 06/11/16 at 18:00 Dextrose (D50w Syringe) 50 ml Q15M PRN IV DECREASED GLUCOSE; Start 06/11/16 at 18:00 Glucagon (Glucagen) 1 mg Q15M PRN IM DECREASED GLUCOSE; Start 06/11/16 at 18:00 Glucose (Glutose) 15 gm Q15M PRN BUCCAL DECREASED GLUCOSE; Start 06/11/16 at 18: 00 ELISE FRANK MD Jun 13, 2016 13:54
[2016-06-13] MEDS: TOPIRAMATE 25 MG TAB PO SCH ×2 (16:36→20:35)
[2016-06-13 20:00] VITALS: BP 150/77; PULSE 69; RESP 18
[2016-06-14] MEDS: PIPER-TAZO 3.375 GM IV (PMX) 100 ML IVPB SCH ×3 (00:15→11:41)
[2016-06-14] MEDS: ACCUCHECK XX SCH (02:00)
[2016-06-14] MEDS: INSULIN ASPART [NOVOLOG] 3 ML PEN SC SCH ×2 (08:00→11:58)
[2016-06-14 08:10] VITALS: BP 138/89; RESP 18
[2016-06-14] MEDS: SUCRALFATE 1 GM TAB PO SCH ×2 (08:19→11:41)
[2016-06-14] MEDS: HEPARIN 5,000 UNIT/0.5 ML SYG SC SCH (09:00)
[2016-06-14] MEDS: TOPIRAMATE 25 MG TAB PO SCH (09:00)
[2016-06-14] MEDS ORDERED: FAMOTIDINE 20 MG TAB PO SCH (09:00)
[2016-06-14] MEDS ORDERED: VALSARTAN 160 MG TAB PO SCH (09:00)
[2016-06-14] MEDS: URSODIOL 300 MG CAP PO SCH (09:09)
--- NOTE | 2016-06-14 12:30 | PDOCDIS ---
Discharge Instructions DIAGNOSIS Discharge Diagnosis: E. coli UTI; cholangitis; migraine syndrome; hypertension CONDITION Patient Condition: Good HOME CARE INSTRUCTIONS: Special Diet: Soft diet ACTIVITY: Activity Restrictions: Slowly Increase Activity Do not operate Power Tool FOLLOW UP/APPOINTMENTS Appointments Follow-up with primary care doctor in 1 week ELISE FRANK MD Jun 14, 2016 12:30
[2016-06-14] MEDS ORDERED: URSO300C21 PO (12:32)
[2016-06-14] MEDS ORDERED: VALS160T20 PO (12:32)
[2016-06-14] MEDS ORDERED: CEPH500C PO (12:32)
[2016-06-14] MEDS ORDERED: TOPI25TA38 PO (12:32)
[2016-06-14] MEDS ORDERED: LEVO250T35 PO (12:32)
--- NOTE | 2016-06-14 12:36 | DS ---
Date/Time of Note Date/Time of Note DATE: 06/14/16 TIME: 12:33 Discharge Summary Admission/Discharge Info Admit Date/Time Jun 11, 2016 at 01:38 Discharge Date/Time 06/14/2016 Final Diagnosis E. coli UTI; possible ascending cholangitis; hypertension; abnormal anatomy of the biliary tree post cholecystectomy and ERCP 14 Patient Condition: Fair Procedures CT scan abdomen and pelvis Hx of Present Illness The patient is a 55-year-old female with a history of hypertension, diabetes, asthma, hepatitis B, cholecystectomy, chronic abdominal pain, and multiple ERCPs , who presented to the emergency department with abdominal pain. She states she has had chronic abdominal pain, but this one recently started and it worsened since yesterday. The pain is mainly localized in the right upper quadrant area. She also reported a dry cough, fever and nausea. She denied constipation, diarrhea, chest pain, shortness of breath, or urinary symptoms. When she presented to the ER she was febrile with a temperature of 102.7, a heart rate of 130. Laboratory value show a WBC of 14,000, AST and ALT in the 80s. CT abdomen and pelvis without contrast shows status post cholecystectomy, and also a small amount of pneumobilia, which could be secondary to a previous intervention such as a sphincterotomy, but if there is no history of previous intervention, radiology states that ascending cholangitis should considered. Also nonspecific mild intrahepatic biliary dilatation in the right lobe of the liver, posterior segment, was done. She was given Zofran, weight based IV fluid , and Tylenol while she was in the ER. She had also received fentanyl for pain because she has MULTIPLE ALLERGIES, INCLUDING HYDROCORTISONE, MORPHINE, DILAUDID AND OXYCODONE. REVIEW OF SYSTEMS: Negative except as mentioned in the HPI. PAST MEDICAL HISTORY: As per HPI. PAST SURGICAL HISTORY: Cholecystectomy, exploratory laparotomy, repair of meniscus tear, surgery for carpal tunnel, multiple ERCPs. Hospital Course 55-year-old woman is admitted to the hospital with abdominal pain right upper quadrant. There imaging was read by radiologist as possible cholangitis. Her blood cultures were negative but the urine culture was positive for E. coli. She was treated with antibiotics for this as well as for the possibility of cholangitis. She improved significantly is now the point where she can manage self-care. She will be discharged home with antibiotics. She has no known communicable diseases she is not hazard to herself or others her rehabilitation potential is good she is competent for medical decisions Home Meds Active Scripts Valsartan* (Diovan*) 160 Mg Tablet, 320 MG PO DAILY for ELEVATED BLOOD PRESSURE for 30 Days, TAB 1 Refill Prov:ELISE FRANK MD 06/14/16 Ursodiol* (Actigall*) 300 Mg Cap, 300 MG PO BID for 30 Days, CAP 1 Refill Prov:ELISE FRANK MD 06/14/16 Topiramate* (Topamax*) 25 Mg Tablet, 25 MG PO BID for prevent migraine for 30 Days, TAB 1 Refill Prov:ELISE FRANK MD 06/14/16 Levofloxacin* (Levaquin*) 250 Mg Tablet, 250 MG PO DAILY@06 for 5 Days, TAB Prov:ELISE FRANK MD 06/14/16 Cephalexin* (Cephalexin*) 500 Mg Capsule, 500 MG PO Q8 for 5 Days, CAP Prov:ELISE FRANK MD 06/14/16 Reported Medications Calcium Carbonate-Vitamin D3 (Calcium 600 + Vit D3) 1 Each Tablet, 1 TAB PO DAILY, TAB 06/10/16 Ursodiol* (Ursodiol*) 300 Mg Capsule, 300 MG PO DAILY, CAP 06/10/16 Valsartan-Hydrochlorothiazide (Valsartan-HCTZ) 80-12.5 Mg Tablet, 1 TAB PO DAILY , #30 TAB 06/10/16 Follow-up Plan 1 specific item she needs to have a repeat urinalysis as an outpatient to look at proteinuria Pending Labs Laboratory Tests Test 06/13/16 16:35 06/13/16 19:34 06/14/16 02:15 06/14/16 07:46 Bedside Glucose 130mg/dL (70-220) 204mg/dL (70-220) 104mg/dL (70-220) 102mg/dL (70-220) Test 06/14/16 11:40 Bedside Glucose 133mg/dL (70-220) ELISE FRANK MD Jun 14, 2016 12:36
[2016-06-14] MEDS ORDERED: CEPHALEXIN 500 MG CAP PO SCH (14:00)
[2016-06-15] MEDS ORDERED: LEVOFLOXACIN 250 MG TAB PO SCH (06:00)
[2016-06-15] MEDS ORDERED: VALSARTAN 160 MG TAB PO SCH (09:00)
== END 2016-06-14 14:38 | disposition home or self-care (01) | DRG 872 ==
LOC: E/R 18:40 → PP2 06-11 01:38
PROVIDERS: ADMIT Internal Medicine; ATTEND Internal Medicine
DX: A41.9 Sepsis, unspecified organism (principal); K83.0 Cholangitis; N39.0 Urinary tract infection, site not specified; B96.20 Unspecified Escherichia coli [E. coli] as the cause of diseases classified elsewhere; I10 Essential (primary) hypertension; E11.9 Type 2 diabetes mellitus without complications; Z90.49 Acquired absence of other specified parts of digestive tract; G43.909 Migraine, unspecified, not intractable, without status migrainosus
CPT/HCPCS: 36415; 71010; 74176; 80053; 81003; 82962; 83605; 83690; 84484; 85025; 85610; 85730; 87040; 87045; 87075; 87086; 87400; 93005; 96374; 96376; J1815; J1885; J2405; J2543; J3010; J7030

== ENCOUNTER 2016-06-18 14:55 | Outpatient (CLI) | payer OTHER ==
[~2016-06-18] VITALS: Ht 152.4 cm; Wt 64.3 kg
[~2016-06-18 14:55] MED LIST: CALC-621 PO; CEPH500C PO; LEVO250T35 PO; TOPI25TA38 PO; URSO300C21 PO; URSO300C3 PO; VALS160T20 PO; VALS1TAB74 PO
--- NOTE | 2016-06-18 15:03 | PN ---
Date/Time of Note Date/Time of Note DATE: 06/18/16 TIME: 15:03 Outpatient Progress Note Chief Complaint Abdominal discomfort/diabetes/hypertension/abnormal LFT/UTI/hepatitis B/asthma HPI Abdominal pain/patient has abdominal discomfort, patient unable to pass gas, patient feel distended and bloating, patient has abdominal pain for long-term, patient also has 14 ERCP, patient also has slight back discomfort, no nausea vomiting or hematemesis or melena, Diabetes/no polydipsia. Hypoglycemia, gastroparesis, Hypertension/no headache or dizziness or lightheadedness, Abnormal LFT/patient has abnormal LFT, no fever or chill, jaundice, UTI/patient had UTI, patient had antibiotic, Hepatitis B/no jaundice, no puffiness of ice, no ascites, eyes, no jaundice, Asthma/no cough expectoration wheezing, no chest tightness, Review of Systems Const: No Fever, no chills, no Wt. loss, no Fatigue, normal appetite, no diaphoresis. Eyes: No pain, no discharge, no redness, no visual change, no foreign body. ENT: No pain, no bleeding, no congestion, no sore throat, no dysphagia, no discharge or rhinitis. Lymph: No adenopathy, no tender nodes, no lymphedema. Resp: No SOB, no cough, no sputum, no wheezing, no chest pain. CV: No chest pain, no palpitaions, no YAN, no PND, no edema. GI: Normal appetite, epigastric pain, no nausea, no vomiting, no diarrhea, no blood, no constipation. : No frequency, no urgency, no dysuria, no hematuria, no flank pain, no discharge, no bleeding. Musc: No bone/joint pain, no back pain, no neck pain, no knee pain, no restricted ROM. Skin: No rash, no skin lesions, no erythema, no laceration, no bruising, no pruritus. Neuro: No MORALES, no dizziness, no syncope, no seizure, no focal-weakness. Endo: No polyuria, no polydypsia, no dry-skin, no temp-intolerance. Psych: No hallucinations, no depression, no anxiety, no suicidal ideation. Ext: No edema, no pain, no ulcer, no weakness. Physical Exam Vital Signs Date Time Temp Pulse Resp B/P Pulse Ox O2 Delivery O2 Flow Rate FiO2 06/18/16 15:14 98.6 96 16 136/76 98 Room Air General Appearance: A 55 year-old female who appears well-developed, well- nourished, in no acute distress. HEENT: Head normocephalic, atraumatic. Pupils equal, round, reactive to light and accommodate. Sclerae are no jaundice. Nasal turbinates pink without erythema or nasal discharge. Mucous membranes pink and moist without lesions. Oropharynx clear without any exudate or discharge. NECK: Supple. Trachea midline, No thyromegaly, No cervical lymphadenopathy, No mass, No carotid bruits, No JVD, Carotid pulses 2+ bilaterally. PULMONARY: Clear to auscultaion bilaterally, No retractions, Chest expansion symmetric bilaterally, no rales, no ronchi, no dulness on percussion. CARDIAC: Normal SI and S2, Regular rate and rythm, no murmur, gallop, or rub. GASTROINTESTINAL: Abdomen is soft, epigastric discomfort,, Non Rigid, No distention, Positive bowel sounds x4 quadrants, Liver normal. SKIN: Warm, dry, no rash, no bruise, no echmosis. EXTREMITIES: Bilateral lower extremities normal, no edema, no phlabitus, pulse palpable, no contracture. MUSCULOSKELETAL: Spine Normal, Non-tender, Normal range of motion, No swelling, no deformity, no clubbing, or cyanosis, the patient has no edema to bilateral lower extremities, dorsalis pedis pulses palpable bilaterally. NEUROLOGIC: The patient is awake, alert, oriented, responding to yes/no questions appropriately, moving all extremities, cranial nerve intact, normal strenght, normal power, normal coordination, normal gait. Allergies Coded Allergies: acetaminophen (Unverified Allergy, Unknown, 06/10/16) doxycycline (Unverified Allergy, Unknown, 06/10/16) hydrocodone (Unverified Allergy, Unknown, 06/10/16) hydromorphone (Unverified Allergy, Unknown, 06/10/16) morphine (Unverified Allergy, Unknown, 06/10/16) oxycodone (Unverified Allergy, Unknown, 06/10/16) prochlorperazine (Unverified Allergy, Unknown, 06/10/16) PMH Abdominal pain/status post abdominal surgery/diabetes/hypertension/abnormal LFT/ UTI/hepatitis B/asthma Status post cholecystectomy, exploratory laparotomy, repair of meniscus tear, surgery for carpal tunnel syndrome,/multiple ERCP, Social Hx No smoking or drinking, Family Hx Noncontributory Assessment/Plan Impression Abdominal discomfort/abdominal distention,/diabetes/hypertension/abnormal LFT/ UTI/hepatitis B/asthma Plan Patient education done, patient has multiple complex medical problem, patient very high risk for repeated admission, patient had been followed at [facility] previously, patient had back pain, patient also herniated disc, Patient education done, patient to follow with the primary care physician, patient wants another primary care physician, we will discussed with the patient , and insurance company, patient to call insurance company to find another physician, Continue to take all medication, and supportive care, Patient encouraged to see primary care physician, Madhuon 82 by mouth 4 times a day, #100 Medications Home Meds Active Scripts Valsartan* (Diovan*) 160 Mg Tablet, 320 MG PO DAILY for ELEVATED BLOOD PRESSURE for 30 Days, TAB 1 Refill Prov:ELISE FRANK MD 06/14/16 Ursodiol* (Actigall*) 300 Mg Cap, 300 MG PO BID for 30 Days, CAP 1 Refill Prov:ELISE FRANK MD 06/14/16 Topiramate* (Topamax*) 25 Mg Tablet, 25 MG PO BID for prevent migraine for 30 Days, TAB 1 Refill Prov:ELISE FARNK MD 06/14/16 Levofloxacin* (Levaquin*) 250 Mg Tablet, 250 MG PO DAILY@06 for 5 Days, TAB Prov:ELISE FRANK MD 06/14/16 Cephalexin* (Cephalexin*) 500 Mg Capsule, 500 MG PO Q8 for 5 Days, CAP Prov:ELISE FRANK MD 06/14/16 Reported Medications Calcium Carbonate-Vitamin D3 (Calcium 600 + Vit D3) 1 Each Tablet, 1 TAB PO DAILY, TAB 06/10/16 Ursodiol* (Ursodiol*) 300 Mg Capsule, 300 MG PO DAILY, CAP 06/10/16 Valsartan-Hydrochlorothiazide (Valsartan-HCTZ) 80-12.5 Mg Tablet, 1 TAB PO DAILY , #30 TAB 06/10/16 KLAUDIA DEVLIN MD Jun 18, 2016 15:03
[2016-06-18 15:14] VITALS: BP 136/76; PULSE 96; RESP 16; Ht 152.4 cm; Wt 64.3 kg
== END 2016-06-18 16:47 | disposition home or self-care (01) ==
LOC: DCC 14:55
PROVIDERS: ATTEND Internal Medicine
DX: R10.9 Unspecified abdominal pain (principal); R14.0 Abdominal distension (gaseous); E11.9 Type 2 diabetes mellitus without complications; I10 Essential (primary) hypertension; R94.5 Abnormal results of liver function studies; N39.0 Urinary tract infection, site not specified; B19.10 Unspecified viral hepatitis B without hepatic coma; J45.909 Unspecified asthma, uncomplicated
CPT/HCPCS: G0463

== ENCOUNTER 2016-07-02 13:29 | Outpatient (CLI) | payer OTHER ==
[~2016-07-02] VITALS: Ht 152.4 cm; Wt 65.5 kg
[2016-07-02 13:44] VITALS: BP 120/77; PULSE 91; RESP 16; Ht 152.4 cm; Wt 65.5 kg
--- NOTE | 2016-07-02 14:14 | PN ---
Date/Time of Note Date/Time of Note DATE: 07/02/16 TIME: 14:14 Outpatient Progress Note Chief Complaint Abdominal pain/diabetes/hypertension/asthma/abnormal LFT HPI Abdominal pain/patient has epigastric discomfort, no nausea, no vomiting, occasional nausea, hematemesis or melena, and abdominal distention, patient did have abdominal surgery and ERCP multiple times, Diabetes/no polydipsia. Hypoglycemia, gastroparesis, Hypertension/no headache or dizziness, no lightheadedness, Asthma/no cough expectoration wheezing, on Advair, Abnormal LFT/patient has abnormal LFT, patient is multiple ERCP, Review of Systems Const: No Fever, no chills, no Wt. loss, no Fatigue, normal appetite, no diaphoresis. Eyes: No pain, no discharge, no redness, no visual change, no foreign body. ENT: No pain, no bleeding, no congestion, no sore throat, no dysphagia, no discharge or rhinitis. Lymph: No adenopathy, no tender nodes, no lymphedema. Resp: No SOB, no cough, no sputum, no wheezing, no chest pain. CV: No chest pain, no palpitaions, no YAN, no PND, no edema. GI: Normal appetite, epigastric pain, no nausea, no vomiting, no diarrhea, no blood, no constipation. : No frequency, no urgency, no dysuria, no hematuria, no flank pain, no discharge, no bleeding. Musc: No bone/joint pain, no back pain, no neck pain, no knee pain, no restricted ROM. Skin: No rash, no skin lesions, no erythema, no laceration, no bruising, no pruritus. Neuro: No MORALES, no dizziness, no syncope, no seizure, no focal-weakness. Endo: No polyuria, no polydypsia, no dry-skin, no temp-intolerance. Psych: No hallucinations, no depression, no anxiety, no suicidal ideation. Ext: No edema, no pain, no ulcer, no weakness. Physical Exam Vital Signs Date Time Temp Pulse Resp B/P Pulse Ox O2 Delivery O2 Flow Rate FiO2 07/02/16 13:44 98.1 91 16 120/77 Room Air General Appearance: A 55 year-old female who appears well-developed, well- nourished, in no acute distress. HEENT: Head normocephalic, atraumatic. Pupils equal, round, reactive to light and accommodate. Sclerae are no jaundice. Nasal turbinates pink without erythema or nasal discharge. Mucous membranes pink and moist without lesions. Oropharynx clear without any exudate or discharge. NECK: Supple. Trachea midline, No thyromegaly, No cervical lymphadenopathy, No mass, No carotid bruits, No JVD, Carotid pulses 2+ bilaterally. PULMONARY: Clear to auscultaion bilaterally, No retractions, Chest expansion symmetric bilaterally, no rales, no ronchi, no dulness on percussion. CARDIAC: Normal SI and S2, Regular rate and rythm, no murmur, gallop, or rub. GASTROINTESTINAL: Abdomen is soft, epigastric discomfort,, Non Rigid, No distention, Positive bowel sounds x4 quadrants, Liver normal. SKIN: Warm, dry, no rash, no bruise, no echmosis. EXTREMITIES: Bilateral lower extremities normal, no edema, no phlabitus, pulse palpable, no contracture. MUSCULOSKELETAL: Spine Normal, Non-tender, Normal range of motion, No swelling, no deformity, no clubbing, or cyanosis, the patient has no edema to bilateral lower extremities, dorsalis pedis pulses palpable bilaterally. NEUROLOGIC: The patient is awake, alert, oriented, responding to yes/no questions appropriately, moving all extremities, cranial nerve intact, normal strenght, normal power, normal coordination, normal gait. Allergies Coded Allergies: acetaminophen (Unverified Allergy, Unknown, 06/10/16) doxycycline (Unverified Allergy, Unknown, 06/10/16) hydrocodone (Unverified Allergy, Unknown, 06/10/16) hydromorphone (Unverified Allergy, Unknown, 06/10/16) morphine (Unverified Allergy, Unknown, 06/10/16) oxycodone (Unverified Allergy, Unknown, 06/10/16) prochlorperazine (Unverified Allergy, Unknown, 06/10/16) PMH No change, Social Hx No change, Family Hx No change, Assessment/Plan Impression Abdominal pain/PUD/diabetes/hypertension/asthma/abnormal LFT Plan Patient doing well, patient has only epigastric discomfort, patient not on any medication, Protonix 40 mg by mouth daily, or equivalent and #30 Patient advised to follow with the primary care physician, Patient advised to follow with the primary care and GI, patient has all her medication, Medications Home Meds Active Scripts Valsartan* (Diovan*) 160 Mg Tablet, 320 MG PO DAILY for ELEVATED BLOOD PRESSURE for 30 Days, TAB 1 Refill Prov:ELISE FRANK MD 06/14/16 Ursodiol* (Actigall*) 300 Mg Cap, 300 MG PO BID for 30 Days, CAP 1 Refill Prov:ELISE FRANK MD 06/14/16 Topiramate* (Topamax*) 25 Mg Tablet, 25 MG PO BID for prevent migraine for 30 Days, TAB 1 Refill Prov:ELISE FARNK MD 06/14/16 Reported Medications Calcium Carbonate-Vitamin D3 (Calcium 600 + Vit D3) 1 Each Tablet, 1 TAB PO DAILY, TAB 06/10/16 Ursodiol* (Ursodiol*) 300 Mg Capsule, 300 MG PO DAILY, CAP 06/10/16 Valsartan-Hydrochlorothiazide (Valsartan-HCTZ) 80-12.5 Mg Tablet, 1 TAB PO DAILY , #30 TAB 06/10/16 Discontinued Scripts Levofloxacin* (Levaquin*) 250 Mg Tablet, 250 MG PO DAILY@06 for 5 Days, TAB Prov:ELISE FRANK MD 06/14/16 Cephalexin* (Cephalexin*) 500 Mg Capsule, 500 MG PO Q8 for 5 Days, CAP Prov:ELISE FRANK MD 06/14/16 KLAUDIA DEVLIN MD Jul 02, 2016 14:14
== END 2016-07-02 16:54 | disposition home or self-care (01) ==
LOC: DCC 13:29
PROVIDERS: ATTEND Internal Medicine
DX: R10.9 Unspecified abdominal pain (principal); K27.9 Peptic ulcer, site unspecified, unspecified as acute or chronic, without hemorrhage or perforation; E11.9 Type 2 diabetes mellitus without complications; I10 Essential (primary) hypertension; J45.909 Unspecified asthma, uncomplicated; R79.89 Other specified abnormal findings of blood chemistry
CPT/HCPCS: G0463